=== PATIENT | female | born 2000 | race Caucasian/White ===

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

== ENCOUNTER 2018-12-24 15:14 | Emergency (ER) | payer SELFPAY ==
[~2018-12-24] VITALS: Ht 157.5 cm; Wt 59.0 kg
[~2018-12-24 15:14] MED LIST changes: +HYDR-4011 PO; -HYDR-906 PO; +NAPR-688 PO; +ONDA4TAB11 PO; +POLY17PO6 PO; +TYL650R PR
[2018-12-24 15:31] VITALS: Ht 157.5 cm; Wt 59.0 kg
[2018-12-24] MEDS ORDERED: KETOROLAC 15 MG INJ IV STA (17:25)
[2018-12-24] MEDS ORDERED: SOD CHLORIDE 0.9% 1,000 ML IV STA (17:25)
--- NOTE | 2018-12-24 17:34 | ERD ---
ER Documentation Chief Complaint Chief Complaint bilateral ear pain x1wk HPI 18-year-old woman complaining of 5 days nasal congestion, rhinorrhea, cough, tactile fever, earaches, and sore throat. There is a younger family member at home with similar symptoms. She denies abdominal pain, no vomiting or diarrhea, no dysuria, no complaints of chest pain or shortness of breath. Patient denies recent travel or antibiotic use ROS All systems reviewed and are negative except as per history of present illness. Medications Home Meds Active Scripts Azithromycin* (Zithromax*) 500 Mg Tablet, 500 MG PO DAILY for 5 Days, TAB Prov:BARBRA SHERIDAN MD 12/24/18 Ibuprofen* (Motrin*) 600 Mg Tab, 600 MG PO Q8 PRN for PAIN AND/OR INFLAMMATION, #30 TAB Prov:BARBRA SHERIDAN MD 12/24/18 Polyethylene Glycol* (Miralax*) 17 Gm Powd.pack, 17 GM PO DAILY, #7 Prov:ENRIQUE STINSON DO 09/10/17 Ondansetron (Zofran Odt) 4 Mg Tab.rapdis, 4 MG PO Q6, #14 Prov:SHANTELLENRIQUE DO 09/10/17 Acetaminophen* (Acephen*) 650 Mg Supp, 650 MG [place] Q5H PRN for PAIN AND OR ELEVATED TEMP, #20 SUPP Prov:ENRIQUE STINSON DO 09/10/17 Hydrocodone/Acetaminophen ([place] 5-325 Tablet) 1 Each Tablet, 1 EACH PO Q6 for SEVERE PAIN LEVEL 7-10, #20 TAB Prov:ENRIQUE STINSON DO 09/10/17 Naproxen* (Naproxen*) 500 Mg Tablet, 500 MG PO BID PRN for PAIN, #20 TAB Prov:SHANTELLENRIQUE DO 09/10/17 Diphenhydramine Hcl* (Benadryl*) 25 Mg Cap, 25 MG PO Q6 PRN for ITCHING/RASH, #30 TAB Prov:WILSON RUSSELL PA-C 04/08/17 Clotrimazole* (Clotrimazole* AF) 1% - 30 Gm Cream.gm., 1 APPLIC TOP BID for 28 Days, TUB Prov:WILSON RUSSELL PA-C 04/08/17 Permethrin* (Elimite*) 5% Cr, 1 APPLIC TOP ONCE, #1 TUB Prov:WILSON RUSSELL PA-C 04/08/17 Ondansetron Hcl* (Zofran*) 4 Mg Tablet, 4 MG PO Q6H for NAUSEA AND/OR VOMITING, #30 TAB Prov:DEANNAGERTRUDENEHAL C 08/24/16 Hydrocodone/Acetaminophen ([place] 5-325 Tablet) 1 Each Tablet, 1 TAB PO Q6H PRN for PAIN, #10 TAB Prov:DEANNANEHAL Bartholomew 08/24/16 Ibuprofen* (Motrin*) 600 Mg Tab, 600 MG PO Q6, #30 TAB Prov:GERTRUDE HUERTACELSO Bartholomew 08/24/16 Hydrocodone Bit-Acetaminophen* ([place]*) 5-325 Mg Tab, 1 TAB PO Q6 PRN for PAIN, #30 TAB Prov:GALE JOSHUA MD 04/25/16 Ciprofloxacin Hcl* (Ciprofloxacin Hcl*) 500 Mg Tablet, 500 MG PO BID, #14 TAB Prov:GALE JOSHUA MD 04/25/16 Allergies Allergies: Coded Allergies: No Known Allergy (Unverified , 12/24/18) PMhx/Soc None History of Surgery: Yes (Appy) Anesthesia Reaction: No Hx Neurological Disorder: No Hx Respiratory Disorders: No Hx Cardiac Disorders: No Hx Psychiatric Problems: No Hx Miscellaneous Medical Probl: Yes (Nephrolithiasis) Hx Alcohol Use: No Hx Substance Use: No Hx Tobacco Use: No Smoking Status: Never smoker Physical Exam Vitals Vital Signs Date Temp Pulse Resp B/P (MAP) Pulse Ox O2 O2 Flow FiO2 Time Delivery Rate 12/24/18 99.0 89 18 124/75 100 Room Air 19:35 (91) 12/24/18 100.3 107 18 140/85 100 15:31 (103) Physical Exam GENERAL: Well-developed, well-nourished, well-hydrated, in no apparent distress, febrile HEENT: Moist mucous membranes, pink conjunctiva, no cervical spine tenderness or step-off deformities, no goiter, no jaundice or icterus, extraocular movements intact without pain. No submandibular induration, and no pharyngeal erythema NEURO: Alert and oriented 3, cranial nerves II through XII intact bilaterally, pupils equal round reactive to light, no focal deficits or facial asymmetry, sensation intact distally Strength 5/5 in upper and lower extremities bilaterally CARDIAC: Cardiac and regular, no murmurs rubs or gallops LUNGS: Clear bilaterally no wheezing crackles or stridor ABDOMEN: Soft nontender, no guarding, no rigidity, no rebound, no psoas sign no obturator sign. Normoactive bowel sounds SKIN: Warm and dry to touch, no abrasions, contusions, or hematomas, no lacerations, no ecchymosis, no target lesions, and without ulcers EXTREMITIES: No clubbing cyanosis or edema, calves are bilaterally symmetrical, no Homans sign, no popliteal cord sign. Distal pulses equal and bilateral PSYCH: Normal affect without agitation or irritability Result Diagram: 12/24/18 1738 12/24/18 1738 Results 24 hrs Laboratory Tests Test 12/24/18 17:38 White Blood Count 10.0 10^3/ul Red Blood Count 4.83 10^6/ul Hemoglobin 14.0 g/dl Hematocrit 42.2 % Mean Corpuscular Volume 87.4 fl Mean Corpuscular Hemoglobin 29.0 pg Mean Corpuscular Hemoglobin Concent 33.2 g/dl Red Cell Distribution Width 12.6 % Platelet Count 254 10^3/UL Mean Platelet Volume 9.9 fl Immature Granulocytes % 0.300 % Neutrophils % 65.4 % Lymphocytes % 26.4 % Monocytes % 7.4 % Eosinophils % 0.4 % Basophils % 0.1 % Nucleated Red Blood Cells % 0.0 /100WBC Immature Granulocytes # 0.030 10^3/ul Neutrophils # 6.5 10^3/ul Lymphocytes # 2.6 10^3/ul Monocytes # 0.7 10^3/ul Eosinophils # 0.0 10^3/ul Basophils # 0.0 10^3/ul Nucleated Red Blood Cells # 0.0 10^3/ul Urine Color YELLOW Urine Clarity SLIGHTLY CLOUDY Urine pH 6.0 Urine Specific [place] 1.023 Urine Ketones NEGATIVE mg/dL Urine Nitrite NEGATIVE mg/dL Urine Bilirubin NEGATIVE mg/dL Urine Urobilinogen NEGATIVE mg/dL Urine Leukocyte Esterase TRACE [place]/ul Urine Microscopic RBC 11 /HPF Urine Microscopic WBC 5 /HPF Urine Squamous Epithelial Cells FEW /HPF Urine Bacteria MODERATE /HPF Urine Mucus FEW /HPF Urine Hemoglobin 3+ mg/dL Urine Glucose NEGATIVE mg/dL Urine Total Protein NEGATIVE mg/dl Sodium Level 141 mmol/L Potassium Level 4.2 mmol/L Chloride Level 105 mmol/L Carbon Dioxide Level 24 mmol/L Anion Gap 12 Blood Urea Nitrogen 14 mg/dl Creatinine 0.63 mg/dl Est Glomerular Filtrat Rate mL/min > 60 mL/min Glucose Level 99 mg/dl Calcium Level 9.2 mg/dl Total Bilirubin 0.2 mg/dl Direct Bilirubin 0.00 mg/dl Indirect Bilirubin 0.2 mg/dl Aspartate Amino Transf (AST/SGOT) 28 IU/L Alanine Aminotransferase (ALT/SGPT) 25 IU/L Alkaline Phosphatase 89 IU/L Total Protein 8.4 g/dl Albumin 4.6 g/dl Globulin 3.80 g/dl Albumin/Globulin Ratio 1.21 Lipase 124 U/L POC Beta HCG, Qualitative NEGATIVE Current Medications Medications Dose Sig/Dickson Start Time Status Last (Trade) Ordered Route PRN Stop Time Admin Dose Reason Admin Sodium 1,000 ml @ Q1H STAT 12/24/18 DC 12/24/18 Chloride 1,000 mls/hr IV 17:25 12/24/18 17:44 18:24 Ketorolac 15 mg ONCE STAT 12/24/18 DC 12/24/18 Tromethamine IV 17:25 12/24/18 17:45 (Toradol) 17:27 Ceftriaxone 50 ml @ ONCE ONCE 12/24/18 DC 12/24/18 Sodium 100 mls/hr IVPB 19:00 12/24/18 19:00 19:29 Ibuprofen 100 mg STK-MED 12/24/18 DC (Motrin ONCE .ROUTE 19:24 12/24/18 Liquid 19:25 (Ped)) Procedures/MDM IV line was established patient was placed on surveillance monitor rhythm strip revealed a sinus rhythm at about sinus tachycardia at 100 bpm with upright P and T waves. Patient was febrile I do not suspect sepsis. I administered 1 L normal saline IV and Toradol 15 mg IV x1 CBC and electrolytes were normal, liver function tests normal, urinalysis negative for infection, influenza AB swabs were negative, strep swab was positive. I administered ceftriaxone 1 g IV. Patient defervesced and vital signs are normal, her pain was controlled and she was able to tolerate p.o. here in the ER without difficulty. She will be discharged with a 5-day prescription of azithromycin once daily. Differential diagnoses considered, included but not limited to acute coronary syndrome, pulmonary embolism, aortic dissection, abdominal aortic aneurysm, sepsis, stroke, meningitis, encephalitis, pneumonia, appendicitis, cholecystitis, bowel obstruction, pyelonephritis, nephrolithiasis, cystitis, as well as metabolic, hematologic, and electrolyte abnormalities. As well as abscess, cellulitis, fractures, and dislocations. Patient feels much better at this time, and vital signs are normal, symptoms have improved. I did give strict instructions to return to the ED if symptoms continue or worsen, patient will otherwise follow-up with primary care physician. Patient understood instructions and agreed to plan. Disclaimer: Inadvertent spelling and grammatical errors are likely due to EHR/dictation software use and do not reflect on the overall quality of patient care. Also, please note that the electronic time recorded on this note does not necessarily reflect the actual time of the patient encounter. Departure Diagnosis: Primary Impression: Viral URI Additional Impression: Strep pharyngitis Condition: BARBRA Garza MD Dec 24, 2018 17:34
[2018-12-24] MEDS ORDERED: AZIT500T3 PO (18:55)
[2018-12-24] MEDS ORDERED: IBUP-1542 PO (18:55)
[2018-12-24] MEDS ORDERED: CEFTRIAXONE 1 GM/50 ML (PMX) 50 ML IVPB ONE (19:00)
[2018-12-24] MEDS ORDERED: IBUPROFEN LIQUID (PED) 20 MG/ML CUP ONE (19:24)
[2018-12-24 19:35] VITALS: BP 124/75; PULSE 89; RESP 18
== END 2018-12-24 19:35 | disposition home or self-care (01) ==
LOC: FTE 15:14
DX: J06.9 Acute upper respiratory infection, unspecified (principal)
CPT/HCPCS: 36415; 80053; 81001; 81025; 83690; 85025; 87400; 87880; 96361; 96365; 96375; 99284; J0696; J1885; J7030